=== PATIENT | male | born 1980 | race Caucasian/White ===

== ENCOUNTER 2017-09-10 21:55 | Emergency (ER) | payer OTHER ==
[~2017-09-10] VITALS: Ht 177.8 cm; Wt 64.0 kg
[~2017-09-10 21:55] MED LIST: Z.0.NO CURRENT MEDS
[2017-09-10 22:00] VITALS: BP 131/87; PULSE 63; RESP 20; O2SAT 99
[2017-09-10 22:06] VITALS: BP 144/75; PULSE 73; RESP 18; TEMP 97.9; O2SAT 99
--- NOTE | 2017-09-10 22:50 | PD ---
HPI Chief Complaint: Syncope/Near-Syncope Time Seen by Provider: 22:15 Travel History International Travel<30 days: No Contact w/Intl Traveler<30days: No Traveled to known affect area: No History of Present Illness HPI This patient has been having retro-orbital headaches for the last 2-3 weeks. He has had optometry evaluation recently including eye pressures and retinol evaluation. Which were normal. Today while driving he had a presyncopal episode that lasted 5 minutes. He had dizzy and lightheaded. He felt like is going to pass out but did not lose consciousness. He pulled off the side of the road and the car and paced around until it resolved. He did have paresthesias in both hands at the time but those have resolved as well. There is no slurring or motor weakness or sensory loss. At this point he feels improved. Symptom severity was moderately severe. No alleviating factors. No exacerbating factors. He denies any chronic health problems. His visual acuity has been normal throughout. He does wear contact lenses. [facility]LY [facility] Past Medical History Medical History: Denies Significant Hx Past Surgical History Other Surgery: Yes (TUMOR REMOVED RT FOOT) Social History Alcohol Use: No Tobacco Use: No Substance Use: No Allergies-Medications (Allergen,Severity, Reaction): Coded Allergies: sertraline (Unverified Allergy, Mild, 11/16/16) Reported Meds & Prescriptions Reported Meds & Active Scripts Active Reported No Current Meds (Miscellaneous Medication) Misc Review of Systems General / Constitutional: No: Fever Eyes: No: Visual changes HENT: Positive: Headaches, Lightheadedness Cardiovascular: No: Chest Pain or Discomfort Respiratory: No: Shortness of Breath Gastrointestinal: No: Abdominal Pain Genitourinary: No: Dysuria Musculoskeletal: No: Pain Skin: No Rash Neurologic: Positive: Dizziness, Headache, Paresthesia, No: Weakness Psychiatric: No: Depression Endocrine: No: Polydipsia Hematologic/Lymphatic: No: Easy Bruising Physical Exam Narrative GENERAL: Well-nourished, well-developed patient in no apparent distress. SKIN: Focused skin assessment reveals no rash and nodules. Skin is Warm and dry. HEAD: Atraumatic. Normocephalic. EYES: Pupils equal and round. No scleral icterus. No injection or drainage. ENT: No nasal bleeding or discharge. Mucous membranes pink and moist. NECK: Trachea midline. No JVD. CARDIOVASCULAR: Regular rate and rhythm. No murmur appreciated. RESPIRATORY: No accessory muscle use. Clear to auscultation. Breath sounds equal bilaterally. GASTROINTESTINAL: Abdomen soft, non-tender, nondistended. Hepatic and splenic margins not palpable. MUSCULOSKELETAL: No obvious deformities. No clubbing. No cyanosis. No edema. NEUROLOGICAL: Awake and alert. No obvious cranial nerve deficits. Motor grossly within normal limits. Normal speech. PSYCHIATRIC: Appropriate mood and affect; insight and judgment normal. Data Data Last Documented VS Vital Signs Date Time Temp Pulse Resp B/P (MAP) Pulse Ox O2 Delivery O2 Flow Rate FiO2 09/10/17 22:19 99 Room Air 09/10/17 22:06 97.9 73 18 144/75 (98) [facility] Medical Decision Making Medical Screen Exam Complete: Yes Emergency Medical Condition: Yes Medical Record Reviewed: Yes Differential Diagnosis Cardiac arrhythmia, panic attack, vasovagal episode Narrative Course I have reviewed the patient's electronic medical record. Patient's exam is normal. His symptoms have improved. I have ordered a workup. [facility] to assist with disposition. David Sanchez MD Sep 10, 2017 22:50
[2017-09-10] MEDS ORDERED: SODIUM CHLORIDE 0.9% FLUSH 10 ML FLUSH IVF PRN (23:00)
--- NOTE | 2017-09-10 23:08 | PD ---
Physical Exam Date Seen by Provider: Sep 10, 2017 Time Seen by Provider: 23:07 Narrative Accepted in transfer of care from Dr. Rodriguez GENERAL: Well-developed well-nourished male no acute distress or respiratory distress appears uncomfortable GCS 15 SKIN: Warm and dry. HEAD: Atraumatic. Normocephalic. EYES: Pupils equal and round. No scleral icterus. No injection or drainage. No papilledema by funduscopic exam per ENT: No nasal bleeding or discharge. Mucous membranes pink and moist. NECK: Trachea midline. No JVD. Supple no meningismus CARDIOVASCULAR: Regular rate and rhythm. RESPIRATORY: No accessory muscle use. Clear to auscultation. Breath sounds equal bilaterally. GASTROINTESTINAL: Abdomen soft, non-tender, nondistended. Hepatic and splenic margins not palpable. MUSCULOSKELETAL: Extremities without clubbing, cyanosis, or edema. No obvious deformities. NEUROLOGICAL: Awake and alert. No obvious cranial nerve deficits. Motor grossly within normal limits. Five out of 5 muscle strength in the arms and legs. No pronator drift. No limb ataxia. DTRs 2+ and equal without clonus. Sensory exam is grossly intact. Normal speech. PSYCHIATRIC: Appropriate mood and affect; insight and judgment normal. Data Data Last Documented VS Vital Signs Date Time Temp Pulse Resp B/P (MAP) Pulse Ox O2 Delivery O2 Flow Rate FiO2 09/11/17 00:56 87 20 126/76 (93) 92 Room Air 09/10/17 22:06 97.9 Orders Orders Electrocardiogram (09/10/17 22:50) Complete Blood Count With Diff (09/10/17 22:50) Basic Metabolic Panel (Bmp) (09/10/17 22:50) Ct Brain W/O Iv Contrast(Rout) (09/10/17 22:50) Ecg Monitoring (09/10/17 22:50) Iv Access Insert/Monitor (09/10/17 22:50) Oximetry (09/10/17 22:50) Sodium Chloride 0.9% Flush (Ns Flush) (09/10/17 23:00) Sodium Chlorid 0.9% 500 Ml Inj (Ns 500 M (09/11/17 00:30) Prochlorperazine Inj (Compazine Inj) (09/11/17 00:30) Ketorolac Inj (Toradol Inj) (09/11/17 00:30) Diphenhydramine Inj (Benadryl Inj) (09/11/17 00:30) Cta Brain W Iv Contrast W 3d (09/11/17 ) Cta Neck W Iv Contrast W 3d (09/11/17 ) Iohexol 350 Inj (Omnipaque 350 Inj) (09/11/17 00:55) Ed Discharge Order (09/11/17 02:13) Labs Laboratory Tests Test 09/10/17 23:00 White Blood Count 6.6 TH/MM3 Red Blood Count 5.02 MIL/MM3 Hemoglobin 15.0 GM/DL Hematocrit 43.8 % Mean Corpuscular Volume 87.3 FL Mean Corpuscular Hemoglobin 29.9 PG Mean Corpuscular Hemoglobin Concent 34.2 % Red Cell Distribution Width 12.3 % Platelet Count 178 TH/MM3 Mean Platelet Volume 9.9 FL Neutrophils (%) (Auto) 68.3 % Lymphocytes (%) (Auto) 24.7 % Monocytes (%) (Auto) 4.1 % Eosinophils (%) (Auto) 1.5 % Basophils (%) (Auto) 1.4 % Neutrophils # (Auto) 4.5 TH/MM3 Lymphocytes # (Auto) 1.6 TH/MM3 Monocytes # (Auto) 0.3 TH/MM3 Eosinophils # (Auto) 0.1 TH/MM3 Basophils # (Auto) 0.1 TH/MM3 CBC Comment DIFF FINAL Differential Comment Blood Urea Nitrogen 9 MG/DL Creatinine 0.91 MG/DL Random Glucose 99 MG/DL Calcium Level 8.6 MG/DL Sodium Level 140 MEQ/L Potassium Level 3.7 MEQ/L Chloride Level 109 MEQ/L Carbon Dioxide Level 23.9 MEQ/L Anion Gap 7 MEQ/L Estimat Glomerular Filtration Rate 93 ML/MIN [facility] Medical Record Reviewed: Yes Supervised Visit with MOLINA: No Interpretation(s) Last Impressions Head CTA 09/11/17 0000 Signed Impressions: CONCLUSION: 1. Negative CTA Head. Head CT 09/10/17 2250 Signed Impressions: CONCLUSION: 1. Negative CT Head non contrast. CBC & BMP Diagram 09/10/17 23:00 Calcium Level 8.6 Vital Signs Date Time Temp Pulse Resp B/P (MAP) Pulse Ox O2 Delivery O2 Flow Rate FiO2 09/11/17 00:56 87 20 126/76 (93) 92 Room Air 09/10/17 23:21 62 18 132/85 (101) 68 136/89 (105) 09/10/17 22:19 99 Room Air 09/10/17 22:06 97.9 73 18 144/75 (98) 99 09/10/17 22:00 63 20 131/87 (102) 99 Room Air 09/10/17 22:00 99 Differential Diagnosis Accepted in transfer of care from Dr. Rodriguez; please refer to his dictation Narrative Course Accepted in transfer of care from Dr. Rodriguez; follow up labs and CT CT brain noncontrast reveals no acute abnormality lab values are found to be in normal range; patient continues complain of marked pain behind his left eye; patient does have family history of migraine and patient has remote history of migraine but states it does not feel like a previous typical migraine. Patient has been having intermittent pain on and off for the month with increased symptoms this evening. Discussed with patient proceeding with imaging studies CTA of the brain to evaluate for AV malformation versus aneurysm fortunately no family history of intracranial bleed or subarachnoid hemorrhage. Patient also offered medication for headache pain. Patient given Toradol 30 mg IV Compazine 5 mg IV and Benadryl 25 mg IV along with bolus of normal saline Patient has decided that he would like to proceed with imaging study and CTA of the brain was ordered CTA brain reveals no evidence of aneurysm or AVM or other finding per reading radiologist Patient reports symptoms significantly improved after Benadryl Compazine and Toradol at this point time patient stable for outpatient management is encouraged to follow-up with his primary care provider and will be taken off work for the next 2 days and encouraged to rest his eyes and avoid computer use and avid TV use. Diagnosis Primary Impression: Headache behind the eyes Referrals: Primary Care Physician 2 days Patient Instructions: General Instructions Departure Forms: Tests/Procedures, Work Release Special Instructions: no work x 2 days Med/Other Pt SpecificInfo: Prescription(s) given Disposition: 01 DISCHARGE HOME Condition: Stable Chioma Magaña MD Sep 10, 2017 23:08
[2017-09-10 23:11] LABS: AUTOMATED NEUTROPHIL # 4.5 TH/MM3 (1.8-7.7); BASOPHIL # 0.1 TH/MM3 (0-0.2); BASOPHIL % 1.4 % (0.0-2.0); EOSINOPHIL # 0.1 TH/MM3 (0-0.4); EOSINOPHIL % 1.5 % (0.0-4.0); HEMATOCRIT 43.8 % (39.0-51.0); LYMPH % 24.7 % (9.0-44.0); LYMPHOCYTE # 1.6 TH/MM3 (1.0-4.8); MEAN CELL VOLUME 87.3 FL (80.0-100.0); MEAN CORPUSCULAR HEMOGLOBIN 29.9 PG (27.0-34.0); MEAN CORPUSCULAR HGB CONC 34.2 % (32.0-36.0); MEAN PLATELET VOLUME 9.9 FL (7.0-11.0); MONO % 4.1 % (0.0-8.0); MONOCYTE # 0.3 TH/MM3 (0-0.9); NEUT % 68.3 % (16.0-70.0); PLATELET COUNT 178 TH/MM3 (150-450); RED BLOOD COUNT 5.02 MIL/MM3 (4.50-5.90); RED CELL DISTRIBUTION WIDTH 12.3 % (11.6-17.2); WHITE BLOOD COUNT 6.6 TH/MM3 (4.0-11.0)
--- NOTE | 2017-09-10 23:13 | RADRPT ---
EXAM DATE: 09/10/2017 11:07 PM EDT AGE/SEX: 37 years / Male INDICATIONS: Retro orbital headaches x 2-3 weeks, worse behind left eye. Today dizzy and lightheade d. CLINICAL DATA: This is the patient's initial encounter. Patient reports that signs and symptoms have been present for 3 weeks and indicates a pain score of 7/10. MEDICAL/SURGICAL HISTORY: None. None. RADIATION DOSE: 55.19 CTDI (mGy) COMPARISON: No prior exams available for comparison. TECHNIQUE: CT of the head without contrast. Using automated exposure control and adjustment of the mA and/or kV according to patient size, radiation dose was kept as low as reasonably achievable to ob tain optimal diagnostic quality images. FINDINGS: Cerebrum: The ventricles are normal for age. No evidence of midline shift, mass lesion, hemorrhage or acute infarction. No extraaxial fluid collections are seen. Posterior Fossa: The cerebellum and brainstem are intact. The 4th ventricle is midline. The cerebe llopontine angle is unremarkable. Extracranial: The visualized portion of the orbits is intact. Skull: The calvaria is intact. No evidence of skull fracture. CONCLUSION: 1. Negative CT Head non contrast. Electronically signed by: Gerard Wei MD 09/10/2017 11:11 PM EDT
[2017-09-10 23:21] VITALS: BP_SYST 132; BP_SYST 136; BP_DIAS 85; BP_DIAS 89; RESP 18
[2017-09-10 23:21] LABS: CALCIUM 8.6 MG/DL (8.5-10.1)
[2017-09-10 23:22] LABS: BICARBONATE 23.9 MEQ/L (21.0-32.0)
[2017-09-10 23:25] LABS: CREATININE 0.91 MG/DL (0.60-1.30)
[2017-09-11] MEDS ORDERED: diphenhydrAMINE HCL 50 MG/ML VIAL IV PUSH ONE (00:30)
[2017-09-11] MEDS ORDERED: KETOROLAC TROMETHAMINE 30 MG/ML (IVP) VIAL IV PUSH ONE (00:30)
[2017-09-11] MEDS ORDERED: PROCHLORPERAZINE INJ 10 MG/2 ML VIAL IV PUSH ONE (00:30)
[2017-09-11] MEDS ORDERED: SODIUM CHLORID 0.9% 500 ML INJ 500 ML IV ONE (00:30)
[2017-09-11] MEDS ORDERED: IOHEXOL 350 MG/ML 10 ML VIAL (for RAD DIAG) IVCONTRAST ONE (00:55)
[2017-09-11 00:56] VITALS: BP 126/76; PULSE 87; RESP 20; O2SAT 92
--- NOTE | 2017-09-11 01:45 | RADRPT ---
EXAM DATE: 09/11/2017 1:40 AM EDT AGE/SEX: 37 years / Male INDICATIONS: Retro orbital headaches x 2-3 weeks. Dizzy. Lightheaded. Evaluate for aneurysm. CLINICAL DATA: This is the patient's initial encounter. Patient reports that signs and symptoms have been present for 3 weeks and indicates a pain score of 5/10. MEDICAL/SURGICAL HISTORY: None. None. RADIATION DOSE: 42.27 CTDI (mGy) ; Combined studies COMPARISON: No prior exams available for comparison. TECHNIQUE: Volumetric scanning was performed using a multi-row detector CT scanner during bolus infu alberta of 90 ml Omnipaque 350 (iohexol) nonionic water-soluble contrast as a cumulative dose for multi ple exams. The data was post processed with a variety of visualization algorithms including full vo lume maximum intensity projection, multi-planar sliding thin slab reformation, curved planar reformat ion, and surface rendering techniques. Using automated exposure control and adjustment of the mA and /or kV according to patient size, radiation dose was kept as low as reasonably achievable to obtain o ptimal diagnostic quality images. FINDINGS: There is excellent visualization of the major intracranial arteries out to the second-order branch ve ssels. There is no evidence for aneurysm, vessel truncation or stenosis, and no evidence for vascula r malformation. CONCLUSION: 1. Negative CTA Head. Electronically signed by: Gerard Wei MD 09/11/2017 1:43 AM EDT
[2017-09-11 02:33] VITALS: BP 124/74
--- NOTE | 2017-09-11 02:58 | RADRPT ---
EXAM DATE: 09/11/2017 2:19 AM EDT AGE/SEX: 37 years / Male INDICATIONS: Retro orbital headaches x 2-3 weeks. Dizzy. Lightheaded. Evaluate for aneurysm. CLINICAL DATA: This is the patient's initial encounter. Patient reports that signs and symptoms have been present for 3 weeks and indicates a pain score of 6/10. MEDICAL/SURGICAL HISTORY: None. None. RADIATION DOSE: 42.27 CTDI (mGy) ; Combined studies COMPARISON: No prior exams available for comparison. TECHNIQUE: Volumetric scanning was performed using a multirow detector CT scanner during bolus infus ion of 90 ml Omnipaque 350 (iohexol) nonionic water-soluble contrast as a cumulative dose for multip le exams. The data was postprocessed with a variety of visualization algorithms including full-volu me maximum intensity projection, multiplanar sliding thin-slab reformation, curved-planar reformation , and surface-rendering techniques. Using automated exposure control and adjustment of the mA and/or kV according to patient size, radiation dose was kept as low as reasonably achievable to obtain opti mal diagnostic quality images. FINDINGS: Aortic Arch: There is a three-vessel origin of the great vessels from the aorta. No evidence of ost ial narrowing Right Carotid: The common carotid artery is intact. The carotid bulb has a normal configuration wit hout ulceration or narrowing. The internal carotid artery lumen is smooth without stenosis. The ext ernal carotid artery is intact. Left Carotid: The common carotid artery is intact. The carotid bulb has a normal configuration with out ulceration or narrowing. The internal carotid artery lumen is smooth without stenosis. The exte rnal carotid artery is intact. Vertebrals: The left vertebral artery is clearly dominant. No stenotic lesions are seen. Elevated flow velocities and ICA/CCA ratios have been found to correlate with increased degrees of ve ssel stenosis, calculated as percentage of diameter relative to a normal segment of distal ICA/CCA. CONCLUSION: 1. Negative CTA Carotid. Electronically signed by: Gerard Wei MD 09/11/2017 2:57 AM EDT
--- NOTE | 2017-09-11 14:35 | EKG ---
Date Performed: 09/10/2017 Time Performed: 22:06:44 PTAGE: 37 years EKG: Sinus rhythm WITH SINUS ARRHYTHMIA INCOMPLETE RIGHT BUNDLE BRANCH BLOCK BORDERLINE ECG INTERPRETATION BASED ON A DEFAULT AGE OF 39 YEARS NO PREVIOUS TRACING DOCTOR: Alfie Gibbs Interpretating Date/Time 09/11/2017 14:32:43
== END 2017-09-11 02:36 | disposition home or self-care (01) ==
LOC: PHED 21:55
DX: R51 Headache (principal); R42 Dizziness and giddiness
CPT/HCPCS: 70450; 70496; 70498; 80048; 85025; 93005; 96361; 96374; 96375; 99285; J0780; J1200; J1885; J7040; Q9967